=== PATIENT | female | born 1965 | race Caucasian/White ===

== ENCOUNTER 2017-04-26 11:52 | Emergency (ER) | payer OTHER ==
[~2017-04-26] VITALS: Ht 177.8 cm; Wt 77.2 kg
[~2017-04-26 11:52] MED LIST: ABILIFY2 MG PO; ADDERALL XR 3030 MG PO; ALPRAZOLAM0.25 M2 PO; BUPROPION XL150 MG PO; SERTRALINE HCL100 MG PO; SERTRALINE HCL50 MG PO; VALIUM5 MG PO
[2017-04-26 12:54] LABS: HEMATOCRIT 40.2 % (36.0-46.0); HEMOGLOBIN 13.5 G/DL (11.9-15.5); MCH 30.3 PG (29.0-34.0); MCHC 33.6 G/DL (30.0-36.0); MCV 90.1 FL (83-99); PLATELET COUNT 189 K/uL (156-360); RBC DIS.WIDTH-CV 12.7 % (11.8-14.6); RED BLOOD COUNT 4.46 M/uL (3.80-5.20); WHITE BLOOD COUNT 5.6 K/uL (4.1-10.2)
[2017-04-26 13:03] LABS: CHLORIDE 104 mEq/L (99-109); POTASSIUM 3.9 mEq/L (3.7-5.4); SODIUM 138 mEq/L (136-147)
[2017-04-26 13:05] LABS: GLUCOSE 109 mg/dL (70-99)
[2017-04-26 13:08] LABS: CREATININE 0.8 mg/dL (0.6-1.3); GFR ESTIMATE (CALCULATED) > 59 mL/min/
[2017-04-26 13:09] LABS: UREA NITROGEN (BUN) 11 mg/dL (9-23)
[2017-04-26] MEDS ORDERED: TESSALON200 MG PO (16:03)
[2017-04-26 16:11] VITALS: BP 130/79
== END 2017-04-26 16:12 | disposition home or self-care (01) ==
LOC: EME 11:52
DX: J06.9 Acute upper respiratory infection, unspecified (principal); B34.9 Viral infection, unspecified; Z88.0 Allergy status to penicillin; Z88.2 Allergy status to sulfonamides
CPT/HCPCS: 71020; 80048; 85027; 87493; 87502; 99281; 99285; J1885; J7120